=== PATIENT | male | born 1965 | race Caucasian/White ===

== ENCOUNTER → 2020-01-18 | Outpatient (CLI) | payer MEDICARE, MEDICAID ==
[~2020-01-18] MED LIST: ARIP20TA5 PO; ATOR40TA78 PO; ESCI10TA10 PO; LISI5TAB7 PO; METF500T17 PO; TAMS-11 PO
[2020-01-18 10:03] LABS: ALANINE AMINOTRANSFERASE 39 U/L (12-78); ALBUMIN 3.8 g/dL (3.4-5.0); ANION GAP 4 mmol/L (5-15); CALCIUM 9.2 mg/dL (8.5-10.1); CHLORIDE 109 mmol/L (98-107)
[2020-01-18 10:06] LABS: ALKALINE PHOSPHATASE 63 U/L (45-117); BILIRUBIN,TOTAL 0.9 mg/dL (0.2-1.0); CREATININE 0.92 mg/dL (0.7-1.3); TOTAL PROTEIN 7.4 g/dL (6.4-8.2)
== END | disposition home or self-care (01) ==
LOC: STAR 08:45
PROVIDERS: ATTEND Student in an Organized Health Care Education/Training Program
DX: Z01.818 Encounter for other preprocedural examination (principal); Z20.828 Contact with and (suspected) exposure to other viral communicable diseases; K40.90 Unilateral inguinal hernia, without obstruction or gangrene, not specified as recurrent
CPT/HCPCS: 36415; 80053; 87635; 93005

== ENCOUNTER 2020-01-22 12:35 | Day surgery (SDC) | payer MEDICARE, MEDICAID ==
[~2020-01-22] VITALS: Ht 177.8 cm; Wt 105.5 kg
[~2020-01-22 12:35] MED LIST changes: +BUPIVACAINE/PF 0.5% ONE; +EPINEPHRINE 1 MG/ML, 1ML ONE
[2020-01-22 12:52] VITALS: BP 161/107
[2020-01-22] MEDS ORDERED: LACTATED RINGERS 1,000 ML IV SCH (12:56)
[2020-01-22] MEDS ORDERED: CHLORHEXIDINE 15 ML UDC ONE (12:59)
[2020-01-22] MEDS ORDERED: HYDROmorphone 1 MG/ML, 1ML INJ IVPush PRN (13:00)
[2020-01-22] MEDS ORDERED: CHLORHEXIDINE 15 ML UDC MM ONE (13:00)
[2020-01-22] MEDS ORDERED: LABETALOL 5MG/ML, 20ML IV PRN (13:00)
[2020-01-22] MEDS ORDERED: ACETAMINOPHEN 325 MG TABLET PO PRN (13:00)
[2020-01-22] MEDS ORDERED: OXYcodone 5 MG/5 ML ORAL.SOL UDC PO PRN (13:00)
[2020-01-22] MEDS ORDERED: FENTANYL PF 100 MCG/2ML IV PRN (13:00)
[2020-01-22] MEDS ORDERED: MEPERIDINE/PF 25MG/0.5ML IVPush PRN (13:00)
[2020-01-22] MEDS ORDERED: LORazepam 2 MG/ML, 1ML IVPush PRN (13:00)
[2020-01-22] MEDS ORDERED: PROMETHAZINE 25 MG/ML, 1ML IVPush PRN (13:00)
[2020-01-22] MEDS ORDERED: ALBUTEROL SULFATE 2.5 MG/3 ML NPPB PRN (13:00)
[2020-01-22] MEDS ORDERED: hydrALAzine 20 MG/ML, 1ML IV PRN (13:00)
[2020-01-22] MEDS ORDERED: MIDAZOLAM 1 MG/ML, 2ML ONE (13:03)
[2020-01-22] MEDS ORDERED: FENTANYL PF 100 MCG/2ML ONE ×2 (13:03→13:55)
[2020-01-22] MEDS ORDERED: DEXAMETHASONE 4 MG/ML, 1ML ONE ×2 (13:08→13:45)
[2020-01-22] MEDS ORDERED: LIDOCAINE PF 2%, 5ML ONE (13:08)
[2020-01-22] MEDS ORDERED: GLYCOPYRROLATE 0.2MG/1ML, 5ML ONE (13:45)
[2020-01-22] MEDS ORDERED: CEFAZOLIN 1,000 MG ONE (13:45)
[2020-01-22] MEDS ORDERED: NEOSTIGMINE 1 MG/ML, 10ML ONE (13:45)
[2020-01-22] MEDS ORDERED: PROPOFOL 10 MG/ML, 20ML ONE (13:45)
[2020-01-22] MEDS ORDERED: SUCCINYLCHOLINE 20 MG/ML, 10ML ONE (13:45)
[2020-01-22] MEDS ORDERED: ONDANSETRON 2MG/ML, 2ML ONE (13:45)
[2020-01-22] MEDS ORDERED: ROCURONIUM 10MG/ML,5ML ONE (13:45)
[2020-01-22] MEDS ORDERED: KETOROLAC 30 MG/1 ML IVPush PRN (15:00)
[2020-01-22] MEDS ORDERED: KETOROLAC 30 MG/1 ML ONE (15:19)
[2020-01-22] MEDS ORDERED: OXYcodone 5 MG/5 ML ORAL.SOL UDC ONE (15:32)
== END 2020-01-22 17:55 | disposition home or self-care (01) ==
LOC: OUT 12:35
PROVIDERS: ATTEND Student in an Organized Health Care Education/Training Program
DX: K40.00 Bilateral inguinal hernia, with obstruction, without gangrene, not specified as recurrent (principal); D17.6 Benign lipomatous neoplasm of spermatic cord; E11.9 Type 2 diabetes mellitus without complications; I10 Essential (primary) hypertension; E78.5 Hyperlipidemia, unspecified; G47.33 Obstructive sleep apnea (adult) (pediatric); G40.909 Epilepsy, unspecified, not intractable, without status epilepticus; F20.9 Schizophrenia, unspecified; N40.0 Benign prostatic hyperplasia without lower urinary tract symptoms; E66.9 Obesity, unspecified; Z79.899 Other long term (current) drug therapy; Z87.891 Personal history of nicotine dependence
CPT/HCPCS: 49650; 82962; C1781; J0171; J0330; J0690; J1100; J1885; J2250; J2405; J2704; J2710; J3010; J7120

== ENCOUNTER → 2020-07-15 | Outpatient (CLI) | payer MEDICARE, MEDICAID ==
[~2020-07-15] MED LIST changes: -BUPIVACAINE/PF 0.5% ONE; -EPINEPHRINE 1 MG/ML, 1ML ONE; +OMNIPAQUE 350 MG/ML, 100ML BOTTLE ONE
== END | disposition home or self-care (01) ==
LOC: CFH 10:13
PROVIDERS: ATTEND Student in an Organized Health Care Education/Training Program
DX: Z09 Encounter for follow-up examination after completed treatment for conditions other than malignant neoplasm (principal); N28.1 Cyst of kidney, acquired; N13.30 Unspecified hydronephrosis; K40.20 Bilateral inguinal hernia, without obstruction or gangrene, not specified as recurrent; N32.89 Other specified disorders of bladder
CPT/HCPCS: 74177; Q9967